=== PATIENT | female | born 1950 | race Caucasian/White ===

== ENCOUNTER 2021-02-05 12:56 | Emergency (ER) | payer OTHER ==
[~2021-02-05] VITALS: Ht 149.9 cm; Wt 57.2 kg
[~2021-02-05 12:56] MED LIST: COZAAR25 MG; PLAVIX75 MG; ZANTAC150 M3; ZOCOR5 MG
== END 2021-02-05 19:50 | disposition home or self-care (01) ==
LOC: ER 12:56
DX: S76.012A Strain of muscle, fascia and tendon of left hip, initial encounter (principal); M54.5 Low back pain; X50.0XXA Overexertion from strenuous movement or load, initial encounter; Y93.F2 Activity, caregiving, lifting; Y92.89 Other specified places as the place of occurrence of the external cause; Y99.8 Other external cause status

== ENCOUNTER 2021-11-02 15:55 | Emergency (ER) | payer OTHER ==
[~2021-11-02] VITALS: Ht 152.4 cm; Wt 49.9 kg
== END 2021-11-02 18:19 | disposition home or self-care (01) ==
LOC: ER 15:55
DX: K22.9 Disease of esophagus, unspecified (principal); A04.8 Other specified bacterial intestinal infections

== ENCOUNTER 2023-03-07 18:38 | Emergency (ER) | payer OTHER ==
[~2023-03-07] VITALS: Ht 160 cm; Wt 65.8 kg
== END 2023-03-07 22:31 | disposition home or self-care (01) ==
LOC: ER 18:38
DX: S09.8XXA Other specified injuries of head, initial encounter (principal); W19.XXXA Unspecified fall, initial encounter; Y93.89 Activity, other specified; Y92.89 Other specified places as the place of occurrence of the external cause; Y99.8 Other external cause status; M79.602 Pain in left arm; M54.50 Low back pain, unspecified; Z91.018 Allergy to other foods
CPT/HCPCS: 70450; 72100; 72125; 73070; 73090; 96372; 99284; J2360

== ENCOUNTER 2023-03-25 11:59 | Emergency (ER) | payer OTHER ==
[~2023-03-25] VITALS: Ht 149.9 cm; Wt 55.8 kg
[2023-03-25] MEDS ORDERED: EZALLOR SPRINKL10 MG PO (12:24)
[2023-03-25] MEDS ORDERED: OMEPRAZOLE-BIC1 EAC1 PO (12:24)
[2023-03-25] MEDS ORDERED: MEMANTINE HCL10 MG PO (12:25)
[2023-03-25] MEDS ORDERED: VASOFLEX D1 CA1 EACH PO (12:25)
[2023-03-25] MEDS ORDERED: PLAVIX75 MG PO (12:25)
[2023-03-25] MEDS ORDERED: ALEGRA (12:26)
[2023-03-25] MEDS ORDERED: DOLOGESIC 500-1 EACH PO (15:29)
== END 2023-03-25 15:39 | disposition home or self-care (01) ==
LOC: ER 11:59
PROVIDERS: General Practice
DX: R10.11 Right upper quadrant pain (principal); Z88.8 Allergy status to other drugs, medicaments and biological substances
CPT/HCPCS: 36415; 71046; 76700; 96372; 99284; J2360